=== PATIENT | male | born 1945 | race Caucasian/White ===

== ENCOUNTER 2022-05-09 14:41 | Outpatient (CLI) | payer MEDICARE, SELFPAY ==
--- NOTE | 2022-05-09 | ECHO_ITS ---
Patient Info Name: RADHA KOLB Age: 77 years : 1945 Gender: Male Ht: 70 in Wt: 180 lbs BSA: 2.02 m2 HR: 86 bpm BP: 154 / 86 mmHg Heart Rhythm: Sinus Rhythm Technical Quality: Fair Exam Date: 05/09/2022 3:02 PM Exam Location: [facility] Patient Status: Outpatient Admit Date: 05/09/2022 Staff Ordering Physician: Shamir Martin M.D. Peoplesoft Analyst: Henrietta Myers RDCS Attending Provider: Shamir Martin M.D. Referring Physician: Mario NEWMAN; Exam Type: CA echo doppler w bubble study Study Info Indications - stroke like symptoms Complete two-dimensional, color flow and Doppler transthoracic echocardiogram is performed with agitated saline. Contrast/Agitated Saline Contrast/Ag. Saline: Agitated Saline Amount: 20.00 ml Existing IV Access: No IV Access Condition: patent with no signs of infiltration New IV Access: Left Summary 1. Left ventricular chamber dimension is normal. 2. Left ventricular systolic function is normal, estimated at 60-65%. 3. There is mildly increased left ventricular wall thickness. 4. The left ventricular diastolic function is grade I diastolic dysfunction. 5. Right atrial chamber dimension is mildly enlarged. 6. No evidence for vctcp-co-hxoc shunt with injection of agitated saline with or without Valsalva. 7. There is trace tricuspid valve regurgitation. 8. No pulmonary hypertension, estimated pulmonary arterial systolic pressure is 33 mmHg. 9. There is trace aortic valve regurgitation. Left Ventricle Left ventricular chamber dimension is normal. Left ventricular systolic function is normal, estimated at 60-65%. There is mildly increased left ventricular wall thickness. The left ventricular diastolic function is grade I diastolic dysfunction. Right Ventricle Right ventricular chamber dimension is normal. Right ventricular systolic function is normal. Left Atria Left atrial chamber dimension is normal. Right Atria Right atrial chamber dimension is mildly enlarged. Atrial Septum No evidence for kbbth-hh-plur shunt with injection of agitated saline with or without Valsalva. Aortic Valve The aortic valve is not well visualized. There is no aortic valve stenosis. There is trace aortic valve regurgitation. There is mild aortic valve calcification. Pulmonic Valve The pulmonic valve is not well visualized. Mitral Valve The mitral valve has thickened leaflets. There is trace mitral valve regurgitation. The mitral valve annulus is moderate to severely calcified. Tricuspid Valve The tricuspid valve leaflets are normal. There is trace tricuspid valve regurgitation. No pulmonary hypertension, estimated pulmonary arterial systolic pressure is 33 mmHg. Pericardium/Pleural The pericardium appears normal. There is small pericardial effusion. Aorta The aortic root size at the sinus of Valsalva is normal. There is mild aortic atherosclerosis. Left Ventricular Outflow Tract Name Value Normal LVOT 2D LVOT Diameter 2.0 cm LVOT Doppler LVOT Peak Gradient
== END 2022-05-09 14:42 | disposition home or self-care (01) ==
PROVIDERS: Visit Provider Internal Medicine Cardiovascular Disease
DX: I63.9 Cerebral infarction, unspecified (principal)
CPT/HCPCS: 93306; 96375

== ENCOUNTER 2023-06-22 09:02 | Observation (INO) | payer MEDICARE, SELFPAY ==
[2023-06-22] VITALS (8 sets, daily range): BP systolic 134–159; BP diastolic 72–94; PULSE 84–115; RESP 15–20; TEMP 36.2–36.7; O2SAT 90–100; BMI 27.1
--- NOTE | ~2023-06-22 | CT_ITS ---
EXAMINATION: CT abdomen pelvis w con DATE: 06/22/2023 10:32 INDICATION: Low abdominal pain. TECHNIQUE: Computed tomography (CT) of the abdomen and pelvis was performed with 100 mL Omnipaque 350 intravenous contrast. Automated exposure control and iterative reconstruction technique were employe d. The dose-length product was 419.35 mGy-cm. COMPARISON: None. FINDINGS: The visualized portions of the lung bases demonstrate emphysema and mild atelectasis. No pl eural effusion. The heart size is normal. There are coronary artery calcifications. No pericardial ef fusion. There is a small sliding hiatal hernia. The liver, spleen, gallbladder, pancreas, and adrenal glands are normal. There are cysts in the kidneys measuring up to 5.5 cm on the left. There is calci fied atherosclerosis of the aorta and many of the other arteries. The prostate is moderately enlarged . There are scattered diverticula in the colon. There is liquid stool in the colon suggesting diarrhe a. The sigmoid colon is small in caliber with wall thickening. It is not clear if the small caliber i s fixed or transient. There is mild fat stranding around the sigmoid colon. The descending, transvers e, and descending colon are distended. The appendix is normal. There is mild right external iliac lym phadenopathy. There is trace pelvic ascites. There are bridging endplate osteophytes at multiple leve ls in the spine, consistent with diffuse idiopathic skeletal hyperostosis (DISH). There is mild lumba r spondylosis. IMPRESSION: 1. Sigmoid colitis. Distention of the more proximal colon may be secondary to adynamic ileus or parti al sigmoid obstruction. 2. Small sliding hiatal hernia. 3. Mild right external iliac lymphadenopathy, likely reactive. Reviewed, dictated and finalized at location A. IMPRESSION: 1. Sigmoid colitis. Distention of the more proximal colon may be secondary to a dynamic ileus or partial sigmoid obstruction. 2. Small sliding hiatal hernia. 3. Mild right external iliac lymphadenopathy, likely reactive.
--- NOTE | ~2023-06-22 | XR_ITS ---
EXAMINATION: XR chest 2V DATE: 06/22/2023 13:33 INDICATION: Sepsis TECHNIQUE: frontal and lateral views of the chest were obtained. COMPARISON: None FINDINGS: Elevation the left hemidiaphragm. No focal airspace opacities, pulmonary edema, pleural effusion or p neumothorax. Heart size is normal. Left pectoral implantable manager monitoring. Mild to moderate thorac ic spondylosis. Prominent colonic gas in the visualized abdomen. IMPRESSION: 1. Elevation of the left hemidiaphragm. No other acute cardiopulmonary disease. Reviewed, dictated and finalized at location B.
[2023-06-22 09:48] LABS: Basophils Absolute Auto 0.1 K/mm3 (0.0-0.1); Basophils Percent Auto 0.3 % (0.2-1.2); Hemoglobin 12.7 g/dL (14.0-18.0); Immature Granulocyte Absolute 0.11 K/mm3 (0.00-0.031); Immature Granulocyte Percent A 0.5 % (0-0.5); Lymphocytes Absolute Auto 1.42 K/mm3 (0.9-3.2); Lymphocytes Percent Auto 5.9 % (18.3-44.2); Mean Corpuscular HGB Conc 32.6 g/dl (32-36); Mean Corpuscular Hemoglobin 28.5 pg (26-34); Mean Corpuscular Volume 87.6 fl (80-100); Mean Platelet Volume 9.3 fl (7.4-10.4); Monocytes Absolute Auto 1.2 K/mm3 (0.1-0.6); Monocytes Percent Auto 5.1 % (2.6-8.5); Neutrophils Absolute Auto 21.2 K/mm3 (1.3-6.7); Neutrophils Percent Auto 88.2 % (45.5-73.1); Platelet Count Result 300 k/mm3 (150-375); Red Blood Count 4.45 M/mm3 (4.6-6.20); Red Cell Distribution Width 13.7 % (11.5-14.5); White Blood Count 24.1 K/mm3 (4.5-10.0)
[2023-06-22 09:52] LABS: Appearance Urine Clear (Clear); Bacteria Urine None Seen /hpf; Bilirubin Urine Negative (Negative); Blood Urine Negative (Negative); Color Urine Yellow (Yellow); Glucose Urine UA Negative (Negative); Ketones Urine Trace mg/dL (Negative); Leukocyte Esterase Ur Negative LEU/UL (Negative); Nitrate Urine Negative (Negative); Protein Urine 1+ mg/dL (Negative); RBC Urine 0-2 /hpf (0-2); Specific Grav Ur 1.021 (1.001-1.035); Squamous Epithelial Cell Urine None Seen /hpf (Few); Urobilinogen Urine 0.2 mg/dL (<2.0); WBC Urine 0-5 /hpf (0-3); pH Urine 5.5 (5.0-9.0)
[2023-06-22 09:55] LABS: Add Urine Microscopic? YES
[2023-06-22 09:57] LABS: Lactic Acid Reflex 1.8 mmol/L (0.7-2.0)
[2023-06-22 09:58] LABS: Alanine Aminotransferase 27 U/L (6-50); Albumin Level 4.7 g/dL (3.5-5.1); Alkaline Phosphatase 71 U/L (38-126); Anion Gap 10 mmol/L (4-12); Aspartate Amino Transferase 29 U/L (17-59); Bilirubin,Total 1.1 mg/dL (0.2-1.3); Blood Urea Nitrogen 22 mg/dL (9-20); Calcium 9.3 mg/dL (8.4-10.2); Carbon Dioxide 22 mmol/L (22-30); Chloride 105 mmol/L (98-107); Estimated Glomerular Filt Rate > 60; Glucose 151 mg/dL (65-110); Lipase 64 U/L (23-300); Potassium 3.6 mmol/L (3.4-5.0); Sodium 137 mmol/L (137-145)
[2023-06-22 10:02] LABS: Platelet Estimate Adequate (Adequate)
[2023-06-22 10:03] LABS: Acanthocytes 1+; Burr Cells 1+; Ovalocytes 1+; Poikilocytosis 1+; Schistocytes Rare
[2023-06-22] MEDS: MORPHINE SULFATE (*CRX) 4 MG/ML INJ IV PUSH (10:41)
[2023-06-22] MEDS: ONDANSETRON INJ 4 MG/2 ML VIAL IV PUSH ×2 (10:42→13:51)
[2023-06-22] MEDS: PIPERACILLN/TAZ 3.375GM/NS50ML 3.375 GM/50 ML BAG IVPB ×3 (11:13→23:38)
--- NOTE | 2023-06-22 11:25 | ED.ABDPAIN ---
HPI - Abdominal Pain General Chief Complaint: Abdominal Pain Stated Complaint: abdominal pain Time Seen by Provider: 06/22/23 09:18 History of Present Illness HPI narrative: Patient is a 78-year-old male who presents ER with abdominal pain. Lower abdomen. Worsening over last week but last 3 days he has had bloating and has not passed gas or had a bowel movement for 2 days. No fevers or chills. No history of diverticulitis. He has not had a colonoscopy. He is not on any blood thinning medication. No aggravating or alleviating factors. He has had some vomiting. No history of bowel obstruction or abdominal surgery. Related Data Allergies Allergy/AdvReac Type Severity Reaction Status Date / Time No Known Allergies Allergy Verified 06/22/23 09:02 Review of Systems Review of Systems: All systems reviewed & are unremarkable except as noted in HPI and below Constitutional: Constitutional: Reports no additional constitutional complaints ENT: Reports system reviewed and no additional complaints, except as documented Cardiovascular: Cardiovascular: Reports no additional cardiovascular complaints Gastrointestinal: Gastrointestinal: Reports abdominal pain, Reports bloating, Reports constipation, Denies diarrhea, Reports nausea and Reports vomiting Genitourinary: Genitourinary: Reports no additional male genitourinary complaints Musculoskeletal: Musculoskeletal: Reports no additional musculoskeletal complaints PMFSH Past Medical History Medical History (Updated 06/22/23 @ 11:28 by Yg Palma MD) CVA (cerebral vascular accident) Hyperlipidemia Hypertension Surgical History Surgical History (Updated 06/22/23 @ 11:26 by Yg Palma MD) No history of previous surgery Exam Narrative: GENERAL: Well-appearing, well-nourished, and in no acute distress. HEAD: Normocephalic, atraumatic. EYES: PERRL and EOMI. ENT: Mucous membranes moist. CHEST: Clear to auscultation. No respiratory distress. HEART: Regular rate and rhythm. Normal peripheral pulses. ABDOMEN: Soft, nontender, distended, bowel sounds present. EXTREMITIES: Normal range of motion. No edema. SKIN: Warm, dry, no rash. NEURO: Alert and oriented x3. PSYCH: Normal mood and affect. Course Course Emergency Course: GI and general surgery consulted. Patient started on Zosyn. Admit the hospitalist service. Vital Signs Vital signs: Vital Signs Temperature 97.1 F L 06/22/23 09:03 Pulse Rate 115 H 06/22/23 09:03 Respiratory Rate 20 06/22/23 09:03 Blood Pressure 137/94 H 06/22/23 09:03 Pulse Oximetry 100 06/22/23 09:03 Oxygen Delivery Room Air 06/22/23 09:03 Temperature 97.1 F L 06/22/23 09:03 Pulse Rate 115 H 06/22/23 09:03 Respiratory Rate 20 06/22/23 09:03 Blood Pressure 137/94 H 06/22/23 09:03 Pulse Oximetry 100 06/22/23 09:03 Oxygen Delivery Room Air 06/22/23 09:03 MDM - Abdominal Pain Lab Data 06/22/23 09:38 06/22/23 09:38 Labs: Lab Results 06/22/23 06/22/23 06/22/23 Range/Units 09:38 09:42 09:43 WBC 24.1 H (4.5-10.0) K/mm3 RBC 4.45 L (4.6-6.20) M/mm3 Hgb 12.7 L (14.0-18.0) g/dL Hct 39.0 L (42.0-52.0) % MCV 87.6 (80-100) fl MCH 28.5 (26-34) pg MCHC 32.6 (32-36) g/dl RDW 13.7 (11.5-14.5) % Plt Count 300 (150-375) k/mm3 MPV 9.3 (7.4-10.4) fl Immature Gran % (Auto) 0.5 (0-0.5) % Neut % (Auto) 88.2 H (45.5-73.1) % Lymph % (Auto) 5.9 L (18.3-44.2) % Fountain % (Auto) 5.1 (2.6-8.5) % Eos % (Auto) 0.0 (0-4.4) % Baso % (Auto) 0.3 (0.2-1.2) % Lymph # (Auto) 1.42 (0.9-3.2) K/mm3 Fountain # (Auto) 1.2 H (0.1-0.6) K/mm3 Eos # (Auto) 0.0 (0-0.3) K/mm3 Baso # (Auto) 0.1 (0.0-0.1) K/mm3 Abs Immat Gran (auto) 0.11 H (0.00-0.031) K/mm3 Absolute Neuts (auto) 21.2 H (1.3-6.7) K/mm3 Absolute Nucleated RBC 0.000 (0.0-0.012) K/mm3 Nucleated RBC % 0.0
[2023-06-22] MEDS: SODIUM CHLORIDE 0.9% IV 1,000 ML 125 ML IV CONT ×2 (12:17→23:36)
--- NOTE | 2023-06-22 12:17 | PM.IMHP ---
H&P: HPI History of Present Illness Date/Time: 06/22/23 12:17 Chief Complaint: Abdominal Pain, Bloating, Nausea Narrative: 78 y/o M presents here with abdominal pain, abdominal bloating, and nausea with PMH of CVA (Jan 2022, no residual deficits), HLD, and HTN. No SH history. Patient presented here for further evaluation of lower abdominal pain. Initially developed the discomfort 2 days ago. Now having associated bloating, nausea with 2 last night and once this morning episodes of emesis, lack of appetite, and not passing flatness - all began yesterday. Last bowel movement was Sun and had sensation that he didn't full evacuate and like he may need to go more. Emesis was nonbilious and non bloody. Patient has never underwent a colonoscopy. No previous history of abdominal surgery or bowel obstruction. No new medications or recent need for narcotics. Endorsing chills and diaphoresis, took temp at home and no fevers noted. Described the abdominal pain dull, lower abdomen (equal to left and right), constant with some fluctuation in intensity, and nonradiating. Some alleviation with standing versus sitting. No other alleviating or aggravating factors identified patient. Denies dark/tarry stools. Initial VS at presentation: 97.1? F, HR 115, RR 20, 137/94, and 100% on RA. ED workup showed: WBC 24.1, Hgb 12.7, creatinine 1.1 and GFR >60, glucose 151, lactic acid 1.8, and UA not suspicious for UTI. CT abd/pelvis showed sigmoid colitis, distention of the proximal colon (adynamic ileus v partial sigmoid obstruction), small sliding hiatal hernia, mild right external iliac lymphadenopathy. Review of Systems Review of Systems: All systems reviewed & are unremarkable except as noted in HPI and below PMFSH Past Medical History Medical History (Updated 06/22/23 @ 19:14 by Spring Moura APRN) CVA (cerebral vascular accident) Jan 2022, no residual deficits Hyperlipidemia Hypertension Surgical History Surgical History No history of previous surgery Social History Social History Smoking packs per day: 0.20 Smoking cigarettes per day: 4.0 Years smoked: 60 Smoking pack-years: 12.00 Smoking status: Current every day smoker Tobacco type: cigarettes Second hand tobacco smoke exposure: No Alcohol intake: never Substance use: never Do You Feel Safe in your Home?: Yes Lack of Transportation: YES Lack of Food: Never True Current Housing: I Have Housing Concerned About Future Housing: No Difficulty Paying Gas/Electric Bills: No Difficulty Paying for Meds: No Currently Unemployed: No Education: Decline to Answer Difficulty w/ Childcare or Family Care: No Spiritual care concerns: No Meds Home Medications and Allergies Home Medications Medication Instructions Recorded Confirmed Type amlodipine 10 mg tablet 10 mg PO DAILY 06/22/23 06/22/23 History aspirin 325 mg tablet 325 mg PO DAILY 06/22/23 06/22/23 History atorvastatin 40 mg tablet 40 mg PO DAILY 06/22/23 06/22/23 History Allergies Allergy/AdvReac Type Severity Reaction Status Date / Time No Known Allergies Allergy Verified 06/22/23 09:02 Vital Signs Vital Signs - 24 hr 06/22/23 09:03 Temperature 97.1 F L Pulse Rate 115 H Respiratory Rate 20 Blood Pressure 137/94 H Pulse Oximetry 100 Oxygen Delivery Room Air Exam Const: General: comfortable and no acute distress Other: , male, nontoxic appearance HENMT: Face/Nose/Sinus: Normal nares present Mouth: Yes moist mucous membranes Eyes: General: appearance normal, both eyes and all related structures Sclera: sclerae normal Pupils: Equal, round and reactive pupils present EOM: EOMs intact bilaterally Resp: Effort & Inspection: normal respiratory effort Auscultation: clear to auscultation bilaterally Cardio: Rate: regular rate Rhy
[2023-06-22] MEDS: MORPHINE SULFATE (*CRX) 2 MG/ML INJ IV PUSH ×2 (13:50→15:19)
--- NOTE | 2023-06-22 13:50 | ADMGEN ---
This patient, Augustin Sanabria, was admitted to 3 [facility] Surg Room 300-01. Patient/family oriented to hospital policies and general routines including ID bracelet, bed and alarms, visiting hours, pain management, procedures, bathroom and other care routines, personal items, smoking policy, room service/diet, and visiting hours. Information on how to activate the Rapid Response Team has been discussed. Patient/Family are encouraged to report perceived risks to care and to ask questions if they do not understand what they are told or what they should do.
[2023-06-22] MEDS: LACTATED RINGERS 1,000 ML 999 ML IV CONT ×2 (14:52→16:04)
[2023-06-22] MEDS: LACTATED RINGERS 500 ML 999 ML IV CONT (16:47)
--- NOTE | 2023-06-22 17:13 | PM.CNGS ---
Assessment and Plan Assessment and plan (1) Colitis: Code(s): K52.9 - Noninfective gastroenteritis and colitis, unspecified Status: Acute Assessment and Plan: Exam and imaging consistent with sigmoid colitis and resultant bowel obstruction, continue serial exams and IV antibiotics, await GI consultation (2) Sepsis: Code(s): A41.9 - Sepsis, unspecified organism Status: Acute Assessment and Plan: secondary to above, continue IV antibiotics and serial exams History of Present Illness Consult details Consult date: 06/22/23 Reason for consult: abdominal pain Requesting physician: Yg Palma MD Narrative: The patient is a 78-year-old male presenting to the emergency department complaining progressive abdominal discomfort, distention over the last few days. The patient reports that the symptoms started on Sunday. The patient reports he had a normal bowel movement on Sunday, but has not had any bowel function since. The patient reports he has passed some flatus over this time. The patient reports some nausea and vomiting yesterday. The patient also describes poor appetite. The patient denies any previous similar episodes. Review of Systems Review of Systems: All systems reviewed & are unremarkable except as noted in HPI and below PMFSH Past Medical History Medical History CVA (cerebral vascular accident) Hyperlipidemia Hypertension Surgical History Surgical History No history of previous surgery Social History Social History Smoking packs per day: 0.20 Smoking cigarettes per day: 4.0 Years smoked: 60 Smoking pack-years: 12.00 Smoking status: Current every day smoker Tobacco type: cigarettes Second hand tobacco smoke exposure: No Alcohol intake: never Substance use: never Do You Feel Safe in your Home?: Yes Lack of Transportation: YES Lack of Food: Never True Current Housing: I Have Housing Concerned About Future Housing: No Difficulty Paying Gas/Electric Bills: No Difficulty Paying for Meds: No Currently Unemployed: No Education: Decline to Answer Difficulty w/ Childcare or Family Care: No Spiritual care concerns: No Meds Home Medications and Allergies Home Medications Medication Instructions Recorded Confirmed Type amlodipine 10 mg tablet 10 mg PO DAILY 06/22/23 06/22/23 History aspirin 325 mg tablet 325 mg PO DAILY 06/22/23 06/22/23 History atorvastatin 40 mg tablet 40 mg PO DAILY 06/22/23 06/22/23 History Allergies Allergy/AdvReac Type Severity Reaction Status Date / Time No Known Allergies Allergy Verified 06/22/23 09:02 Vital Signs Vital Signs - 24 hr 06/22/23 09:03 06/22/23 11:15 06/22/23 11:17 Temperature 36.2 C L 36.7 C 36.6 C Pulse Rate 115 H 96 94 Respiratory Rate 20 16 15 Blood Pressure 137/94 H 134/80 140/78 Pulse Oximetry 100 95 92 Oxygen Delivery Room Air 06/22/23 12:16 06/22/23 12:46 06/22/23 13:33 Temperature 36.7 C 36.7 C 36.7 C Pulse Rate 97 90 92 Respiratory Rate 16 16 16 Blood Pressure 145/85 H 135/76 141/79 H Pulse Oximetry 98 95 93 Oxygen Delivery 06/22/23 15:30 06/22/23 14:00 Temperature 36.5 C Pulse Rate 84 Respiratory Rate 18 Blood Pressure 159/72 H Pulse Oximetry 99 Oxygen Delivery Room Air Exam Const: General: cooperative, no acute distress and uncomfortable HENMT: Head: normal to inspection, normocephalic and atraumatic Eyes: General: appearance normal, both eyes and all related structures Neck: Neck: normal visual inspection, full ROM and no lymphadenopathy Resp: Effort & Inspection: normal respiratory effort Auscultation: clear to auscultation bilaterally Cardio: Rate: regular rate Rhythm: regular rhythm GI: Inspection: normal to inspection and distended GI Palp:
[2023-06-22] MEDS: MORPHINE SULFATE (*CRX) 2 MG/ML INJ 4 MG IV PUSH (17:51)
[2023-06-22] MEDS: DOCUSATE SODIUM 100 MG CAPSULE PO (21:35)
[2023-06-23 04:45] VITALS: BP 120/66; PULSE 93; RESP 20; TEMP 36.5; O2SAT 93
[2023-06-23] MEDS: PIPERACILLN/TAZ 3.375GM/NS50ML 3.375 GM/50 ML BAG IVPB ×3 (05:35→17:04)
[2023-06-23 06:31] LABS: Basophils Absolute Auto 0.1 K/mm3 (0.0-0.1); Basophils Percent Auto 0.6 % (0.2-1.2); Eosinophils Absolute Auto 0.2 K/mm3 (0-0.3); Eosinophils Percent Auto 1.2 % (0-4.4); Hematocrit 31.4 % (42.0-52.0); Hemoglobin 9.8 g/dL (14.0-18.0); Immature Granulocyte Absolute 0.05 K/mm3 (0.00-0.031); Immature Granulocyte Percent A 0.4 % (0-0.5); Lymphocytes Absolute Auto 2.49 K/mm3 (0.9-3.2); Lymphocytes Percent Auto 18.2 % (18.3-44.2); Mean Corpuscular HGB Conc 31.2 g/dl (32-36); Mean Corpuscular Volume 89.7 fl (80-100); Mean Platelet Volume 9.7 fl (7.4-10.4); Monocytes Absolute Auto 1.1 K/mm3 (0.1-0.6); Monocytes Percent Auto 8.3 % (2.6-8.5); Neutrophils Absolute Auto 9.8 K/mm3 (1.3-6.7); Neutrophils Percent Auto 71.3 % (45.5-73.1); Platelet Count Result 219 k/mm3 (150-375); Red Cell Distribution Width 13.8 % (11.5-14.5); White Blood Count 13.7 K/mm3 (4.5-10.0)
[2023-06-23 06:44] LABS: Alanine Aminotransferase 19 U/L (6-50); Albumin Level 3.4 g/dL (3.5-5.1); Alkaline Phosphatase 58 U/L (38-126); Anion Gap 7 mmol/L (4-12); Aspartate Amino Transferase 30 U/L (17-59); Bilirubin,Total 0.9 mg/dL (0.2-1.3); Blood Urea Nitrogen 19 mg/dL (9-20); Calcium 8.4 mg/dL (8.4-10.2); Carbon Dioxide 22 mmol/L (22-30); Chloride 108 mmol/L (98-107); Estimated CRCL calculation 43 ml/min; Estimated Glomerular Filt Rate 54; Glucose 101 mg/dL (65-110); Potassium 3.3 mmol/L (3.4-5.0); Sodium 137 mmol/L (137-145)
[2023-06-23 06:55] LABS: Hemoglobin A1C 5.6 % (<5.7)
[2023-06-23] MEDS: ATORVASTATIN 40 MG TABLET PO (08:32)
[2023-06-23] MEDS: amLODIPine BESYLATE 5 MG TABLET 10 MG PO (08:32)
[2023-06-23] MEDS: POTASSIUM CHLORIDE 20 MEQ PACKET (FOR LIQUID) 40 MEQ PO (08:32)
[2023-06-23] MEDS: ASPIRIN 325 MG TABLET PO (08:32)
[2023-06-23] MEDS: PANTOPRAZOLE SODIUM IV 40 MG VIAL IV PUSH (08:33)
[2023-06-23] MEDS: SODIUM CHLORIDE 0.9% IV 1,000 ML 125 ML IV CONT ×2 (08:40→17:04)
--- NOTE | 2023-06-23 12:06 | WPDGICN ---
Assessment and Plan Assessment and plan (1) Sepsis: Code(s): A41.9 - Sepsis, unspecified organism Status: Acute Assessment and Plan: on iv abx, much better from colitis will get stoo samples started on abx (2) Colitis: Code(s): K52.9 - Noninfective gastroenteritis and colitis, unspecified Status: Acute Assessment and Plan: clinically better, tolerating liquid diet pain is almost gone and he is having diarrhea now get stool samples will need colonoscopy but probably in 3-4 weeks after resolution of active inflammation- never had one (3) Nausea and vomiting in adult: Code(s): R11.2 - Nausea with vomiting, unspecified Status: Acute Assessment and Plan: resolved (4) Diarrhea: Code(s): R19.7 - Diarrhea, unspecified Status: Acute (5) Ileus: Code(s): K56.7 - Ileus, unspecified Status: Acute (6) Abnormal CT scan, sigmoid colon: Code(s): R93.3 - Abnormal findings on diagnostic imaging of other parts of digestive tract Status: Acute GI Consult Note Consult date/time: 06/23/23 12:06 Reason for consult: colitis, abdominal pain HPI: Augustin Sanabria is a 78 year old male here with new onset of lower abdominal pain.? Pain started 2 days ago and could not find a position to get relief, then developed bloating, nausea and just feeling sicker. Had episode of emesis, no fever but some chills or sick contacts, never had similar episodes and at baseline he has normal BM, never had colonoscopy. He did not have BM initially but since admission had at least 5-6 loose stools and he is already feeling much better, pain is almost gone and tolerating CL diet. ER evaluation, WBC 24.1, Hgb 12.7, creatinine 1.1 and GFR >60,? glucose 151, lactic acid 1.8, and UA not suspicious for UTI. CT abd/pelvis showed sigmoid colitis, distention of the proximal colon (adynamic ileus v partial sigmoid obstruction), started on iv abx Review of Systems Constitutional: Constitutional: Reports chills Eyes: Eyes: Denies blurry vision ENT: Reports Normal hearing present Cardiovascular: Cardiovascular: Denies chest pain Respiratory: Respiratory: Denies cough Gastrointestinal: Gastrointestinal: Reports abdominal pain, Reports diarrhea, Reports nausea and Reports vomiting Genitourinary: Genitourinary: Denies dysuria Musculoskeletal: Musculoskeletal: Denies neck pain Integumentary/Breasts: Skin/Breast: Denies rash Neurologic: Denies Abnormal speech present Psychiatric: Psychiatric: Denies behavioral changes [facility] Past Medical History Medical History (Updated 06/23/23 @ 12:11 by Trent Montemayor MD) Abnormal CT scan, sigmoid colon CVA (cerebral vascular accident) Jan 2022, no residual deficits Diarrhea Hyperlipidemia Hypertension Nausea and vomiting in adult Surgical History Surgical History No history of previous surgery Social History Social History Smoking packs per day: 0.20 Smoking cigarettes per day: 4.0 Years smoked: 60 Smoking pack-years: 12.00 Smoking status: Current every day smoker Tobacco type: cigarettes Second hand tobacco smoke exposure: No Alcohol intake: never Substance use: never Do You Feel Safe in your Home?: Yes Lack of Transportation: YES Lack of Food: Never True Current Housing: I Have Housing Concerned About Future Housing: No Difficulty Paying Gas/Electric Bills: No Difficulty Paying for Meds: No Currently Unemployed: No Education: Decline to Answer Difficulty w/ Childcare or Family Care: No Spiritual care concerns: No Meds Home Medications and Allergies Home Medications Medication Instructions Recorded Confirmed Type amlodipine 10 mg tablet 10 mg PO DAILY 06/22/23 06/22/23 History aspirin 325 mg tablet 325 mg PO DAILY 06/22/23 06/22/23 History
--- NOTE | 2023-06-23 12:43 | PM.PNGS ---
Progress Note: A&P Assessment and Plan (1) Colitis: Code(s): K52.9 - Noninfective gastroenteritis and colitis, unspecified Status: Acute Assessment and Plan: much improved, cont abx, ADAT, appreciate GI input and will need interval colonoscopy as outpt Subjective Subjective Date/Time Seen: 06/23/23 12:43 Interval history: feels much better, pain resolved, +diarrhea, paty clears Review of Systems Review of Systems: All systems reviewed & are unremarkable except as noted in HPI and below Exam Const: General: cooperative, comfortable and no acute distress Resp: Auscultation: clear to auscultation bilaterally Cardio: Rate: regular rate Rhythm: regular rhythm GI: Inspection: normal to inspection and distended GI Palp: No abdominal tenderness, Yes Soft to palpation, No Tenderness to palpation present (GI), No Guarding due to palpation present (GI) and No Rigid due to palpation Objective Data Vital Signs Vital Signs: Vital Signs - 24 hr 06/22/23 12:46 06/22/23 13:33 06/22/23 15:30 Temperature 36.7 C 36.7 C Pulse Rate 90 92 Respiratory Rate 16 16 Blood Pressure 135/76 141/79 H Pulse Oximetry 95 93 Oxygen Delivery Room Air 06/22/23 14:00 06/22/23 20:50 06/23/23 04:45 Temperature 36.5 C 36.2 C L 36.5 C Pulse Rate 84 96 93 Respiratory Rate 18 18 20 Blood Pressure 159/72 H 134/72 120/66 Pulse Oximetry 99 90 93 Oxygen Delivery 06/23/23 08:00 Temperature Pulse Rate Respiratory Rate Blood Pressure Pulse Oximetry Oxygen Delivery Room Air Intake/Output Intake/Output: Intake & Output 06/20/23 06/21/23 06/22/23 06/23/23 23:59 23:59 23:59 23:59 Intake Total 3210.0 1451 Balance 3210.0 1451 Meds/Results Medications: Active Medications Generic Name Dose Route Start Last Admin Trade Name Freq PRN Reason Stop Dose Admin Acetaminophen 500 mg 06/22/23 19:25 Acetaminophen 500 Mg Tablet PO Q6H PRN Mild Pain (1-3) or Fever Amlodipine Besylate 10 mg 06/23/23 09:00 06/23/23 08:32 Amlodipine Besylate 5 Mg Tablet PO 10 mg DAILY GREGORY Administration Aspirin 325 mg 06/23/23 09:00 06/23/23 08:32 Aspirin 325 Mg Tablet PO 325 mg DAILY GREGORY Administration Atorvastatin Calcium 40 mg 06/23/23 09:00 06/23/23 08:32 Atorvastatin 40 Mg Tablet PO 40 mg DAILY GREGORY Administration Piperacillin/Tazobactam/Dextrose 3.375 gm in 50 mls @ 100 mls/hr 06/22/23 18:00 06/23/23 12:00 Zosyn 3.375 Gm/Ns 50 Ml IVPB Infused Q6H GREGORY Infusion Sodium Chloride 1,000 mls @ 125 mls/hr 06/22/23 11:25 06/23/23 08:40 Normal Saline Iv IV CONT 125 mls/hr .Q8H GREGORY Administration Melatonin 3 mg 06/22/23 19:31 Melatonin 3 Mg Tablet PO HS PRN Insomnia Morphine Sulfate 4 mg 06/22/23 15:12 06/22/23 17:51 Morphine Sulfate (*Crx) 2 Mg/Ml Inj IV PUSH 4 mg Q2H PRN Administration Pain Rated 7-10 Ondansetron HCl 4 mg 06/22/23 11:21 06/22/23 13:51 Ondansetron Inj 4 Mg/2 Ml Vial IV PUSH 4 mg Q4H PRN Administration Nausea Pantoprazole Sodium 40 mg 06/23/23 09:00 06/23/23 08:33 Pantoprazole Sodium Iv 40 Mg Vial IV PUSH 40 mg QAM GREGORY Administration Radiology Results: ITS Impressions Abdomen/Pelvis CT 06/22/23 10:34 IMPRESSION: 1. Sigmoid colitis. Distention of the more proximal colon may be secondary to adynamic ileus or partial sigmoid obstruction. 2. Small sliding hiatal hernia. 3. Mild right external iliac lymphadenopathy, likely reactive. Chest X-Ray 06/22/23 13:44 IMPRESSION: 1. Elevation of the left hemidiaphragm. No other acute cardiopulmonary disease. Labs Labs: Laboratory Results - last 24 hr 06/23/23 05:42 WBC 13.7 H RBC 3.50 L Hgb 9.8 L Hct 31.4 L MCV 89.7 MCH 28.0 MCHC 31.2 L RDW 13.8 Plt Count 219 MPV 9.7 Immature Gran % (Auto) 0.4 Neut % (Auto) 71.3 Lymph % (Auto) 18.2 L [place] % (Auto) 8.3 Eos % (Auto) 1.2 [place]
[2023-06-23 14:00] VITALS: BP 127/58; PULSE 80; RESP 14; TEMP 36.8; O2SAT 95
--- NOTE | 2023-06-23 14:39 | PCCCNOTE ---
On 06/23/23, the student, [Vale Blair], provided care and completed [facility] documentation on this patient. I have reviewed the student's documentation and agree with the findings.
--- NOTE | 2023-06-23 15:18 | PM.IMPN ---
Progress Note: A&P Assessment and Plan (1) Sepsis: Code(s): A41.9 - Sepsis, unspecified organism Status: Acute Assessment and Plan: Patient met SIRS criteria with elevated HR, RR, and WBC. No hypotension. He received appropriate fluid resuscitation. UA not consistent with UTI. CXR showing elevated left hemidiaphragm but no other acute findings. CT A/P showing sigmoid colitis with distention of the more proximal colon and reactive adenopathy BCx NGTD Suspected source of sepsis: Colitis Started on Zosyn on 06/21 WBC better and symptomatically better CDiff negative. Follow (2) Colitis: Code(s): K52.9 - Noninfective gastroenteritis and colitis, unspecified Status: Acute Assessment and Plan: As above. GI and GenSurg consulted and appreciate their input Clear liquid diet started and tolerating Stop IV fluids with advancement of diet (3) Ileus: Code(s): K56.7 - Ileus, unspecified Status: Acute Assessment and Plan: CT abd/pelvis showed colitis and distention of the proximal colon (adynamic ileus or partial sigmoid obstruction) Treatment as above. He is passing stool. Plan for colonoscopy in 3-4 weeks for further evaluation Plan DVT Prophylaxis: SCDs Code Status: Full Code Subjective Date/time seen: 06/23/23 15:18 Interval history: 78yo male with CVA, HTN and HLD here for abdominal pain. No fever or chills. No n/v. No melana or hematochezia. No abd pain. Tolerating clear liquids. +BMs that are loose. No Cp or SOB. Exam Narrative: AF 98.3 127/58 90 14 95% ra Gen - NARD Chest - scattered inspiratory rhonchi. CV - RRR S1/S2 Abd - Soft, NT/ND, Positive BS Ext - No pedal edema Psych - Nml mood and affect Skin - Warm and dry Objective Data Vital Signs Vital Signs: Vital Signs - 24 hr 06/22/23 15:30 06/22/23 20:50 06/23/23 04:45 Temperature 97.1 F L 97.7 F Pulse Rate 96 93 Respiratory Rate 18 20 Blood Pressure 134/72 120/66 Pulse Oximetry 90 93 Oxygen Delivery Room Air 06/23/23 08:00 06/23/23 14:00 Temperature 98.3 F Pulse Rate 80 Respiratory Rate 14 Blood Pressure 127/58 L Pulse Oximetry 95 Oxygen Delivery Room Air Intake/Output Intake/Output: Intake & Output 06/20/23 06/21/23 06/22/23 06/23/23 23:59 23:59 23:59 23:59 Intake Total 3210.0 1571 Balance 3210.0 1571 Meds/Results Medications: Active Medications Generic Name Dose Route Start Last Admin Trade Name Freq PRN Reason Stop Dose Admin Acetaminophen 500 mg 06/22/23 19:25 Acetaminophen 500 Mg Tablet PO Q6H PRN Mild Pain (1-3) or Fever Amlodipine Besylate 10 mg 06/23/23 09:00 06/23/23 08:32 Amlodipine Besylate 5 Mg Tablet PO 10 mg DAILY GREGORY Administration Aspirin 325 mg 06/23/23 09:00 06/23/23 08:32 Aspirin 325 Mg Tablet PO 325 mg DAILY GREGORY Administration Atorvastatin Calcium 40 mg 06/23/23 09:00 06/23/23 08:32 Atorvastatin 40 Mg Tablet PO 40 mg DAILY GREGORY Administration Piperacillin/Tazobactam/Dextrose 3.375 gm in 50 mls @ 100 mls/hr 06/22/23 18:00 06/23/23 12:00 Zosyn 3.375 Gm/Ns 50 Ml IVPB Infused Q6H GREGORY Infusion Sodium Chloride 1,000 mls @ 125 mls/hr 06/22/23 11:25 06/23/23 08:40 Normal Saline Iv IV CONT 125 mls/hr .Q8H GREGORY Administration Melatonin 3 mg 06/22/23 19:31 Melatonin 3 Mg Tablet PO HS PRN Insomnia Morphine Sulfate 4 mg 06/22/23 15:12 06/22/23 17:51 Morphine Sulfate (*Crx) 2 Mg/Ml Inj IV PUSH 4 mg Q2H PRN Administration Pain Rated 7-10 Ondansetron HCl 4 mg 06/22/23 11:21 06/22/23 13:51 Ondansetron Inj 4 Mg/2 Ml Vial IV PUSH 4 mg Q4H PRN Administration Nausea Pantoprazole Sodium 40 mg 06/23/23 09:00 06/23/23 08:33 Pantoprazole Sodium Iv 40 Mg Vial IV PUSH 40 mg QAM GREGORY Administration Radiology Results: ITS Impressions Abdomen/Pelvis CT 06/22/23 10:34 IMPRESSION: 1.
[2023-06-23 15:27] LABS: Toxigenic C. Diff NEGATIVE (NEGATIVE)
[2023-06-23 21:01] VITALS: BP 133/66; PULSE 82; RESP 18; TEMP 37.3; O2SAT 93
[2023-06-24] MEDS: PIPERACILLN/TAZ 3.375GM/NS50ML 3.375 GM/50 ML BAG IVPB ×2 (00:50→05:35)
[2023-06-24 05:46] VITALS: BP 132/78; PULSE 90; RESP 18; TEMP 37.2; O2SAT 94
[2023-06-24 05:51] LABS: Basophils Absolute Auto 0.1 K/mm3 (0.0-0.1); Basophils Percent Auto 0.9 % (0.2-1.2); Eosinophils Absolute Auto 0.3 K/mm3 (0-0.3); Eosinophils Percent Auto 3.1 % (0-4.4); Hemoglobin 9.6 g/dL (14.0-18.0); Immature Granulocyte Absolute 0.05 K/mm3 (0.00-0.031); Immature Granulocyte Percent A 0.5 % (0-0.5); Lymphocytes Absolute Auto 2.26 K/mm3 (0.9-3.2); Lymphocytes Percent Auto 20.8 % (18.3-44.2); Mean Corpuscular Hemoglobin 28.1 pg (26-34); Mean Corpuscular Volume 90.6 fl (80-100); Mean Platelet Volume 9.8 fl (7.4-10.4); Monocytes Absolute Auto 0.8 K/mm3 (0.1-0.6); Monocytes Percent Auto 7.3 % (2.6-8.5); Neutrophils Absolute Auto 7.3 K/mm3 (1.3-6.7); Neutrophils Percent Auto 67.4 % (45.5-73.1); Platelet Count Result 219 k/mm3 (150-375); Red Blood Count 3.42 M/mm3 (4.6-6.20); Red Cell Distribution Width 13.7 % (11.5-14.5); White Blood Count 10.9 K/mm3 (4.5-10.0)
[2023-06-24 06:08] LABS: Iron 32 ug/dL (49-181)
[2023-06-24 06:17] LABS: Albumin Level 3.2 g/dL (3.5-5.1); Anion Gap 7 mmol/L (4-12); Blood Urea Nitrogen 15 mg/dL (9-20); Calcium 8.2 mg/dL (8.4-10.2); Carbon Dioxide 21 mmol/L (22-30); Chloride 112 mmol/L (98-107); Estimated CRCL calculation 46 ml/min; Estimated Glomerular Filt Rate 59; Glucose 96 mg/dL (65-110); Phosphorus 3.3 mg/dL (2.5-4.5); Potassium 3.2 mmol/L (3.4-5.0); Sodium 140 mmol/L (137-145)
[2023-06-24 06:18] LABS: Percent Iron Saturation 16 % (20-50)
[2023-06-24 07:14] LABS: Folic Acid 7.6 ng/mL (2.76->20)
[2023-06-24] MEDS: PANTOPRAZOLE SODIUM IV 40 MG VIAL IV PUSH (08:34)
[2023-06-24] MEDS: ATORVASTATIN 40 MG TABLET PO (08:34)
[2023-06-24] MEDS: POTASSIUM CHLORIDE 20 MEQ ER TABLET 40 MEQ PO (08:34)
[2023-06-24] MEDS: ASPIRIN 325 MG TABLET PO (08:34)
[2023-06-24] MEDS: amLODIPine BESYLATE 5 MG TABLET 10 MG PO (08:34)
--- NOTE | 2023-06-24 10:34 | PM.PNGS ---
Progress Note: A&P Assessment and Plan (1) Colitis: Code(s): K52.9 - Noninfective gastroenteritis and colitis, unspecified Status: Acute Assessment and Plan: exam benign, paty diet, +bowel fxn, cont abx and plans for interval colonoscopy as outpt, no acute surgical issues, will s/o, call c?s, issues Subjective Subjective Date/Time Seen: 06/24/23 10:34 Interval history: feels good, paty diet, +bowel fxn, no abd pain Review of Systems Review of Systems: All systems reviewed & are unremarkable except as noted in HPI and below Exam Const: General: cooperative, comfortable and no acute distress Resp: Auscultation: clear to auscultation bilaterally Cardio: Rate: regular rate Rhythm: regular rhythm GI: Inspection: normal to inspection and non-distended GI Palp: No abdominal tenderness and Yes Soft to palpation Objective Data Vital Signs Vital Signs: Vital Signs - 24 hr 06/23/23 14:00 06/23/23 21:01 06/24/23 05:46 Temperature 36.8 C 37.3 C 37.2 C Pulse Rate 80 82 90 Respiratory Rate 14 18 18 Blood Pressure 127/58 L 133/66 132/78 Pulse Oximetry 95 93 94 Intake/Output Intake/Output: Intake & Output 06/21/23 06/22/23 06/23/23 06/24/23 23:59 23:59 23:59 23:59 Intake Total 3210.0 3061 818 Balance 3210.0 3061 818 Meds/Results Medications: Active Medications Generic Name Dose Route Start Last Admin Trade Name Freq PRN Reason Stop Dose Admin Acetaminophen 500 mg 06/22/23 19:25 Acetaminophen 500 Mg Tablet PO Q6H PRN Mild Pain (1-3) or Fever Amlodipine Besylate 10 mg 06/23/23 09:00 06/24/23 08:34 Amlodipine Besylate 5 Mg Tablet PO 10 mg DAILY GREGORY Administration Aspirin 325 mg 06/23/23 09:00 06/24/23 08:34 Aspirin 325 Mg Tablet PO 325 mg DAILY GREGORY Administration Atorvastatin Calcium 40 mg 06/23/23 09:00 06/24/23 08:34 Atorvastatin 40 Mg Tablet PO 40 mg DAILY GREGORY Administration Cyanocobalamin 1,000 mcg 06/24/23 09:00 Cyanocobalamin Inj 1,000 Mcg/Ml Vial IM 07/15/23 09:01 WEEKLY GREGORY Cyanocobalamin 1,000 mcg 06/24/23 09:00 Cyanocobalamin 1,000 Mcg Tablet PO QAM GREGORY Piperacillin/Tazobactam/Dextrose 3.375 gm in 50 mls @ 100 mls/hr 06/22/23 18:00 06/24/23 05:35 Zosyn 3.375 Gm/Ns 50 Ml IVPB 100 mls/hr Q6H GREGORY Administration Iron Sucrose 100 mg/ Sodium 55 mls @ 220 mls/hr 06/24/23 09:00 Chloride IVPB 06/26/23 09:14 QAM GREGORY Melatonin 3 mg 06/22/23 19:31 Melatonin 3 Mg Tablet PO HS PRN Insomnia Morphine Sulfate 2 mg 06/23/23 18:49 Morphine Sulfate (*Crx) 2 Mg/Ml Inj IV PUSH Q4H PRN Pain Rated 7-10 Ondansetron HCl 4 mg 06/22/23 11:21 06/22/23 13:51 Ondansetron Inj 4 Mg/2 Ml Vial IV PUSH 4 mg Q4H PRN Administration Nausea Pantoprazole Sodium 40 mg 06/23/23 09:00 06/24/23 08:34 Pantoprazole Sodium Iv 40 Mg Vial IV PUSH 40 mg QAM GREGORY Administration Radiology Results: ITS Impressions Abdomen/Pelvis CT 06/22/23 10:34 IMPRESSION: 1. Sigmoid colitis. Distention of the more proximal colon may be secondary to adynamic ileus or partial sigmoid obstruction. 2. Small sliding hiatal hernia. 3. Mild right external iliac lymphadenopathy, likely reactive. Chest X-Ray 06/22/23 13:44 IMPRESSION: 1. Elevation of the left hemidiaphragm. No other acute cardiopulmonary disease. Labs Labs: Laboratory Results - last 24 hr 06/23/23 06/24/23 14:24 05:14 WBC 10.9 H RBC 3.42 L Hgb 9.6 L Hct 31.0 L MCV 90.6 MCH 28.1 MCHC 31.0 L RDW 13.7 Plt Count 219 MPV 9.8 Immature Gran % (Auto) 0.5 Neut % (Auto) 67.4 Lymph % (Auto) 20.8 [place] % (Auto) 7.3 Eos % (Auto) 3.1 Baso % (Auto) 0.9 Lymph # (Auto) 2.26 [place] # (Auto) 0.8 H Eos # (Auto) 0.3 Baso # (Auto) 0.1 Abs Immat Gran (auto) 0.05 H Absolute Neuts (auto) 7.3 H Absolute Nucleated RBC 0.000 Nucleated RBC % 0.0 Sodium
[2023-06-24 13:38] VITALS: BP 140/63; PULSE 87; RESP 18; TEMP 37.1; O2SAT 97
--- NOTE | 2023-06-24 14:38 | WPDGIPROGNO ---
Progress Note: A&P Assessment and Plan (1) Colitis: Code(s): K52.9 - Noninfective gastroenteritis and colitis, unspecified Status: Acute Assessment and Plan: clinically much better, no more pain, wbc almost back down to normal, no fever he can go home plan is colonoscopy in 4-5 weeks since never had one (2) Nausea and vomiting in adult: Code(s): R11.2 - Nausea with vomiting, unspecified Status: Acute Assessment and Plan: resolved (3) Diarrhea: Code(s): R19.7 - Diarrhea, unspecified Status: Acute (4) Abnormal CT scan, sigmoid colon: Code(s): R93.3 - Abnormal findings on diagnostic imaging of other parts of digestive tract Status: Acute Subjective Date/time seen: 06/24/23 14:38 Interval history: tolerating diet, no more pain, no nausea he is feeling like going home Review of Systems Review of Systems: All systems reviewed & are unremarkable except as noted in HPI and below Exam Const: General: comfortable and no acute distress HENMT: Face/Nose/Sinus: Normal nares present Eyes: General: appearance normal, both eyes and all related structures Neck: Neck: no JVD Resp: Auscultation: clear to auscultation bilaterally Cardio: Rate: regular rate Rhythm: regular rhythm GI: Inspection: non-distended GI Palp: Yes Soft to palpation and No Tenderness to palpation present (GI) Auscultation: normal bowel sounds Skin: General skin exam: normal color Neuro: General: gait normal Speech: normal speech Extrem: General: normal to inspection Psych: Mental Status: mental status grossly normal Objective Data Vital Signs Vital Signs: Vital Signs - 24 hr 06/23/23 21:01 06/24/23 05:46 06/24/23 08:00 Temperature 99.2 F 99 F Pulse Rate 82 90 Respiratory Rate 18 18 Blood Pressure 133/66 132/78 Pulse Oximetry 93 94 Oxygen Delivery Room Air 06/24/23 13:38 Temperature 98.7 F Pulse Rate 87 Respiratory Rate 18 Blood Pressure 140/63 Pulse Oximetry 97 Oxygen Delivery Intake/Output Intake/Output: Intake & Output 06/21/23 06/22/23 06/23/23 06/24/23 23:59 23:59 23:59 23:59 Intake Total 3210.0 3061 1262 Balance 3210.0 3061 1262 Meds/Results Medications: Active Medications Generic Name Dose Route Start Last Admin Trade Name Freq PRN Reason Stop Dose Admin Acetaminophen 500 mg 06/22/23 19:25 Acetaminophen 500 Mg Tablet PO Q6H PRN Mild Pain (1-3) or Fever Amlodipine Besylate 10 mg 06/23/23 09:00 06/24/23 08:34 Amlodipine Besylate 5 Mg Tablet PO 10 mg DAILY GREGORY Administration Aspirin 325 mg 06/23/23 09:00 06/24/23 08:34 Aspirin 325 Mg Tablet PO 325 mg DAILY GREGORY Administration Atorvastatin Calcium 40 mg 06/23/23 09:00 06/24/23 08:34 Atorvastatin 40 Mg Tablet PO 40 mg DAILY GREGORY Administration Cyanocobalamin 1,000 mcg 06/24/23 09:00 Cyanocobalamin Inj 1,000 Mcg/Ml Vial IM 07/15/23 09:01 WEEKLY GREGORY Cyanocobalamin 1,000 mcg 06/24/23 09:00 Cyanocobalamin 1,000 Mcg Tablet PO QAM [facility] Piperacillin/Tazobactam/Dextrose 3.375 gm in 50 mls @ 100 mls/hr 06/22/23 18:00 06/24/23 12:00 Zosyn 3.375 Gm/Ns 50 Ml IVPB Not Given Q6H GREGORY Iron Sucrose 100 mg/ Sodium 55 mls @ 220 mls/hr 06/24/23 09:00 06/24/23 08:35 Chloride IVPB 06/26/23 09:14 Not Given QAM [facility] Melatonin 3 mg 06/22/23 19:31 Melatonin 3 Mg Tablet PO HS PRN Insomnia Morphine Sulfate 2 mg 06/23/23 18:49 Morphine Sulfate (*Crx) 2 Mg/Ml Inj IV PUSH Q4H PRN Pain Rated 7-10 Ondansetron HCl 4 mg 06/22/23 11:21 06/22/23 13:51 Ondansetron Inj 4 Mg/2 Ml Vial IV PUSH 4 mg Q4H PRN Administration Nausea Pantoprazole Sodium 40 mg 06/23/23 09:00 06/24/23 08:34 Pantoprazole Sodium Iv 40 Mg Vial IV PUSH 40 mg QAM GREGORY Administration Radiology Results: ITS Impressions Abdomen/Pelvis CT 06/22/23 10:34 IMPRESSION: 1. Sigmoid
--- NOTE | 2023-06-24 15:02 | PM.DS ---
DS: Admitting Diagnosis Discharge Date 06/24/23 Admitting Diagnosis Abdominal pain DS: Discharge Diagnosis Discharge Diagnosis (1) Sepsis: Code(s): A41.9 - Sepsis, unspecified organism Status: Acute (2) Colitis: Code(s): K52.9 - Noninfective gastroenteritis and colitis, unspecified Status: Acute (3) Ileus: Code(s): K56.7 - Ileus, unspecified Status: Acute (4) Anemia: Code(s): D64.9 - Anemia, unspecified Status: Acute (5) Tobacco abuse: Code(s): Z72.0 - Tobacco use Status: Acute (6) B12 deficiency: Code(s): E53.8 - Deficiency of other specified B group vitamins Status: Acute DS: Summary Hospital Course Reason for hospitalization: 78yo male with CVA, HTN and HLD here for abdominal pain. Please see H&P for details. Hospital Course: Patient met SIRS criteria and received appropriate fluid resuscitation. WBC was 24K. UA was not consistent with UTI. CXR showing elevated left hemidiaphragm but no other acute findings. CT A/P showing sigmoid colitis with distention of the more proximal colon and reactive adenopathy. BCx no groeth to date. Suspected colitis was the source of sepsis and he was started on Zosyn on 06/21. WBC trended down and he symptomatically improved. CDiff negative. GI? and GenSurg consulted and appreciate their input. Clear liquid diet started and diet advanced as he tolerated. He is passing stool.Plan for colonoscopy in 3-4 weeks for further evaluation. He was educated about the benefits of smoking cessation. Hgb 12.7 on admission but dropped to 9 where it remained stable. Iron studies: Fe 32, TIBC 200, TSat 16% and Ferritin 168. Suspect iron deficiency with anemia of chronic disease. Folate normal but B12 low at 232 and this was replaced. He overall did well and was able to be discharged home on 06/24/23 Status at Discharge Cognitive/behavioral status at discharge: stable. Time Spent with Patient Time attestation: Total time spent providing and/or coordinating discharge services: 35 minutes Time spent: Greater than 30 minutes Exam Narrative: AF 98.7 140/63 87 18 97% ra Gen - NARD Chest - R>L dry crackles. CV - RRR S1/S2 Abd - Soft, NT/ND, Positive BS Ext - No pedal edema Psych - Nml mood and affect Skin - Warm and dry DS: Data Data Completed and Pending Labs on day of discharge: Labs from last 24 hours 06/24/23 06/23/23 05:14 14:24 WBC 10.9 H RBC 3.42 L Hgb 9.6 L Hct 31.0 L MCV 90.6 MCH 28.1 MCHC 31.0 L RDW 13.7 Plt Count 219 MPV 9.8 Immature Gran % (Auto) 0.5 Neut % (Auto) 67.4 Lymph % (Auto) 20.8 [place] % (Auto) 7.3 Eos % (Auto) 3.1 Baso % (Auto) 0.9 Lymph # (Auto) 2.26 [place] # (Auto) 0.8 H Eos # (Auto) 0.3 Baso # (Auto) 0.1 Abs Immat Gran (auto) 0.05 H Absolute Neuts (auto) 7.3 H Absolute Nucleated RBC 0.000 Nucleated RBC % 0.0 Sodium 140 Potassium 3.2 L Chloride 112 H Carbon Dioxide 21 L Anion Gap 7 BUN 15 Creatinine 1.20 Estim Creat Clear Calc 46 Estimated GFR 59 Glucose 96 Calcium 8.2 L Phosphorus 3.3 Magnesium 2.0 Iron 32 L TIBC 200 L % Saturation 16 L Ferritin 158.00 Albumin 3.2 L Vitamin B12 232.0 L Folate 7.6 C. difficile (PCR) Negative Preliminary micro results at discharge 06/22/23 14:36 Blood Culture - Preliminary Blood 06/22/23 14:35 Blood Culture - Preliminary Blood Discharge Plan Discharge Attending physician on discharge: Jesus Tena Consulting providers: Ciera Ansari; Trent Montemayor Discharging Clinician: Jesus Tena Anticipated Discharge Date/Time: 06/24/23 15:13 Patient Disposition: Home, Self-Care Activity: as tolerated Diet: heart healthy Discharge Instructions: Check blood pressure 1 to 2 times a day. Record and bring into your doctor for review. Call your doctor if your blood pressu
[2023-06-24 15:21] VITALS: O2SAT 96
--- NOTE | 2023-06-28 08:11 | PC.NURSE ---
Blood cx are negative, Stool cx are negative, WBC smear was negative. Dr. Mallika meyer.
== END 2023-06-24 16:10 | disposition home or self-care (01) ==
LOC: ANHED 11:28 → ANH3MEDSUR 16:16
PROVIDERS: Internal Medicine Gastroenterology; Student in an Organized Health Care Education/Training Program; Admitting Provider Student in an Organized Health Care Education/Training Program; Emergency Provider Emergency Medicine; PCP Family Medicine Sports Medicine; Visit Provider Internal Medicine
DX: A41.9 Sepsis, unspecified organism (principal); K52.9 Noninfective gastroenteritis and colitis, unspecified; K56.7 Ileus, unspecified; D64.9 Anemia, unspecified; E53.8 Deficiency of other specified B group vitamins; I10 Essential (primary) hypertension; E78.5 Hyperlipidemia, unspecified; Z86.73 Personal history of transient ischemic attack (TIA), and cerebral infarction without residual deficits; F17.210 Nicotine dependence, cigarettes, uncomplicated; Z79.82 Long term (current) use of aspirin; Z79.899 Other long term (current) drug therapy
CPT/HCPCS: 36415; 71046; 74177; 80053; 80069; 81001; 82607; 82728; 82746; 83036; 83540; 83550; 83605; 83690; 83735; 85025; 87040; 87045; 87427; 87449; 87493; 89055; 96361; 96365; 96375; 96376; 99285; A9270; C9113; G0378; J2270; J2405; J2543; J7030; J7120; Q9967

== ENCOUNTER 2023-08-29 06:59 | Day surgery (SDC) | payer MEDICARE, SELFPAY ==
[2023-06-27 12:21] VITALS: BMI 27.9
[2023-08-29 08:26] VITALS: BP 130/70; PULSE 89; RESP 18; TEMP 36.7; O2SAT 98; BMI 26.1
[2023-08-29] MEDS: LACTATED RINGERS 1,000 ML 150 ML IV CONT (08:39)
--- NOTE | 2023-08-29 08:48 | PM.HPGS ---
History of Present Illness History of Present Illness Consent: Risks, benefits, and alternatives have been discussed and questions answered. Patient agrees to proceed with procedure. Chief complaint: Noninfective gastroenteritis/colitis,unspecified Narrative: Augustin Sanabria is a 78 year old male referred for colonoscopy. The patient was hospitalized 2 months ago with severe sepsis. He had vague abdominal pain. Patient denies any significant diarrhea. He had severe leukocytosis. A CT scan of the abdomen revealed colitis. Was treated with broad-spectrum antibiotic coverage with prompt improvement of his symptoms. Patient colonoscopy to evaluate abnormality seen on CT scan imaging. This suggested colitis 2 months ago. Patient denies any bleeding. His appetite has returned to normal. He no longer has abdominal discomfort. Review of Systems Review of Systems: All systems reviewed & are unremarkable except as noted in HPI and below PMFSH Past Medical History Medical History (Updated 06/24/23 @ 15:12 by Jesus Tena MD) Abnormal CT scan, sigmoid colon B12 deficiency CVA (cerebral vascular accident) Jan 2022, no residual deficits Diarrhea Hyperlipidemia Hypertension Nausea and vomiting in adult Surgical History Surgical History No history of previous surgery Social History Social History Smoking packs per day: 0.20 Smoking cigarettes per day: 4.0 Years smoked: 60 Smoking pack-years: 12.00 Smoking status: Current every day smoker Tobacco type: cigarettes Second hand tobacco smoke exposure: No Alcohol intake: never Substance use: never Substance use type: does not use Do You Feel Safe in your Home?: Yes Lack of Transportation: YES Lack of Food: Never True Current Housing: I Have Housing Concerned About Future Housing: No Difficulty Paying Gas/Electric Bills: No Difficulty Paying for Meds: No Currently Unemployed: No Education: Decline to Answer Difficulty w/ Childcare or Family Care: No Spiritual care concerns: No Meds Home Medications and Allergies Home Medications Medication Instructions Recorded Confirmed Type amlodipine 10 mg tablet 10 mg PO DAILY 06/22/23 08/29/23 History aspirin 325 mg tablet 325 mg PO DAILY 06/22/23 08/29/23 History atorvastatin 40 mg tablet 40 mg PO DAILY 06/22/23 08/29/23 History cyanocobalamin (vitamin B-12) 1,000 mcg PO QAM #30 tabs 06/24/23 08/29/23 Rx 1,000 mcg tablet (Vitamin B-12) ferrous sulfate 325 mg (65 mg 325 mg PO DAILY #30 tabs 06/24/23 08/29/23 Rx iron) tablet Allergies Allergy/AdvReac Type Severity Reaction Status Date / Time No Known Allergies Allergy Verified 08/29/23 08:21 Vital Signs Vital Signs - 24 hr 08/29/23 08:26 Temperature 98.1 F Pulse Rate 89 Respiratory Rate 18 Blood Pressure 130/70 Pulse Oximetry 98 Oxygen Delivery Room Air Exam Narrative: Physical exam reveals patient to be alert vital signs stable. HEENT exam is unremarkable. Patient is anicteric. Lungs are clear to auscultation and to percussion. Without murmur or extra sounds. Abdomen bowel sounds are present soft nontender with no organomegaly. Digital external rectal exam is normal. Assessment and Plan Assessment and plan (1) Abnormal CT scan, sigmoid colon: Code(s): R93.3 - Abnormal findings on diagnostic imaging of other parts of digestive tract Status: Acute Assessment and Plan: Patient referred for colonoscopy because of abnormal exam CT scan findings. Colitis is suggested. Patient is symptomatic [place] improved after treatment with broad-spectrum antibiotic coverage. (2) Colitis: Code(s): K52.9 - Noninfective gastroenteritis and colitis, unspecified Status: Acute Assessment and Plan: Symptoms of colitis have improved with antibiotic therapy. I suspec
--- NOTE | 2023-08-29 08:51 | WPDANESEPPF ---
Anes - Initial Pre Proc Eval Procedure: Operation Date: 08/29/23 09:30 Proposed Procedures p Diagnostic Colonoscopy - Ronnell Cheema MD Date/Time: 08/29/23 08:51 Surgeon: Ronnell Cheema MD Pre Op Diagnosis: Noninfective gastroenteritis/colitis,unspecified Patient Data Age: 78 Gender: M Height: 1.75 m Weight: 80.3 kg Last Vital Signs Temp 36.7 C 08/29/23 08:26 Pulse 89 08/29/23 08:26 Resp 18 08/29/23 08:26 BP 130/70 08/29/23 08:26 Pulse Ox 98 08/29/23 08:26 O2 Del Method Room Air 08/29/23 08:26 Allergies Allergy/AdvReac Type Severity Reaction Status Date / Time No Known Allergies Allergy Verified 08/29/23 08:21 Home Medications Medication Instructions Recorded Confirmed Type amlodipine 10 mg tablet 10 mg PO DAILY 06/22/23 08/29/23 History aspirin 325 mg tablet 325 mg PO DAILY 06/22/23 08/29/23 History atorvastatin 40 mg tablet 40 mg PO DAILY 06/22/23 08/29/23 History cyanocobalamin (vitamin B-12) 1,000 mcg PO QAM #30 tabs 06/24/23 08/29/23 Rx 1,000 mcg tablet (Vitamin B-12) ferrous sulfate 325 mg (65 mg 325 mg PO DAILY #30 tabs 06/24/23 08/29/23 Rx iron) tablet Patient hx anesthesia problems: none Family hx anesthesia problems: none Results Review: All pre-operative results and documents have been reviewed as part of the pre-operative evaluation. [facility] Past Medical History Medical History Abnormal CT scan, sigmoid colon B12 deficiency CVA (cerebral vascular accident) Jan 2022, no residual deficits Diarrhea Hyperlipidemia Hypertension Nausea and vomiting in adult Surgical History Surgical History No history of previous surgery Social History Social History Smoking packs per day: 0.20 Smoking cigarettes per day: 4.0 Years smoked: 60 Smoking pack-years: 12.00 Smoking status: Current every day smoker Tobacco type: cigarettes Second hand tobacco smoke exposure: No Alcohol intake: never Substance use: never Substance use type: does not use Do You Feel Safe in your Home?: Yes Lack of Transportation: YES Lack of Food: Never True Current Housing: I Have Housing Concerned About Future Housing: No Difficulty Paying Gas/Electric Bills: No Difficulty Paying for Meds: No Currently Unemployed: No Education: Decline to Answer Difficulty w/ Childcare or Family Care: No Spiritual care concerns: No Anes - Eval Final PreProcedure Day of Procedure 08/29/23 08:51 Patient weight: overweight Heart: regular rate and rhythm Lungs: clear to auscultation Airway: Mallampati scale class II Neurological: alert and oriented Last oral intake: >/= 8 hours ASA classification: III Emergent: no Anesthetic plan: proceed Anesthesia type and monitoring: general GIVS and standard monitoring Results Review: All pre-operative results and documents have been reviewed as part of the pre-operative evaluation. Informed Consent: The patient's anesthetic plan and its attendant risks and benefits were discussed with the patient/family/POA. Questions were solicited and answers provided to the satisfaction of the patient/family/POA.
[2023-08-29 09:56] VITALS: BP 93/75; PULSE 73; RESP 16; O2SAT 96
[2023-08-29 10:06] VITALS: BP 114/73; PULSE 75; RESP 15; O2SAT 98
[2023-08-29 10:16] VITALS: BP 121/68; PULSE 74; RESP 15; O2SAT 98
--- NOTE | 2023-08-29 10:29 | WPDANESPN ---
Anes - Prog Note Post-Op Date/Time: 08/29/23 10:29 Cardiovascular status: normal Respiratory status: normal Airway patency: baseline Mental status: baseline Post-Op hydration status: normal Vital Signs: Last Vital Signs Temp 36.7 C 08/29/23 08:26 Pulse 74 08/29/23 10:16 Resp 15 08/29/23 10:16 BP 121/68 08/29/23 10:16 Pulse Ox 98 08/29/23 10:16 O2 Del Method Room Air 08/29/23 10:16 Pain Score (VAS): 0/10 I/O: Intake & Output 08/28/23 08/29/23 08/29/23 23:59 07:59 15:59 Intake Total 800 Balance 800 Patient Feedback: Patient satisfied with anesthetic care.
== END 2023-08-29 10:27 | disposition home or self-care (01) ==
PROVIDERS: PCP Family Medicine Sports Medicine; Visit Provider Internal Medicine Gastroenterology
PROC: 0DJD8ZZ Inspection of Lower Intestinal Tract, Via Natural or Artificial Opening Endoscopic (ICD-10-PCS; CPT 45378; principal; 2023-08-29 09:30)
DX: R93.3 Abnormal findings on diagnostic imaging of other parts of digestive tract (principal); D12.4 Benign neoplasm of descending colon; D12.8 Benign neoplasm of rectum; K57.30 Diverticulosis of large intestine without perforation or abscess without bleeding; K64.8 Other hemorrhoids
CPT/HCPCS: 45385

== ENCOUNTER 2023-08-30 07:04 | Outpatient (NON) | payer MEDICARE, SELFPAY | END 2023-08-30 07:05 | disposition home or self-care (01) | LOC: ANHLAB 07:05 | PROVIDERS: PCP Family Medicine Sports Medicine; Visit Provider Internal Medicine Gastroenterology | DX: R93.3 Abnormal findings on diagnostic imaging of other parts of digestive tract (principal) | CPT/HCPCS: 88305 ==